=== PATIENT | female | born 1950 | race Caucasian/White ===

== ENCOUNTER 2017-11-02 08:55 | Day surgery (SDC) | payer MEDICARE ==
[2017-10-31 09:18] VITALS: BP 103/66
[~2017-11-02] VITALS: Ht 167.6 cm; Wt 95.2 kg
[~2017-11-02 08:55] MED LIST: APIX5TAB PO; ATOR20TA9 PO; BUPIVACAINE/PF 0.5% ONE; METO-99 PO; METO50TA82 PO
[2017-11-02] MEDS ORDERED: LACTATED RINGERS 1,000 ML IV SCH (09:20)
[2017-11-02 09:23] VITALS: BP 103/66
[2017-11-02] MEDS ORDERED: LIDOCAINE-MPF 1%, 2ML ONE (09:30)
[2017-11-02] MEDS ORDERED: LIDOCAINE-MPF 1%, 2ML INFIL ONE (09:30)
[2017-11-02] MEDS ORDERED: LIDOCAINE-MPF 2% ,5ML ONE (10:50)
[2017-11-02] MEDS ORDERED: PROPOFOL 10 MG/ML, 20ML ONE (10:50)
[2017-11-02] MEDS ORDERED: CEFAZOLIN 1,000 MG ONE ×2 (11:02)
[2017-11-02] MEDS ORDERED: DEXAMETHASONE 4 MG/ML, 1ML ONE (11:07)
[2017-11-02] MEDS ORDERED: ONDANSETRON 2MG/ML, 2ML ONE (11:08)
[2017-11-02] MEDS ORDERED: FENTANYL PF 100 MCG/2ML ONE (11:08)
[2017-11-02] MEDS ORDERED: BUPIVACAINE/PF-EPI 0.5% 1:200K IM ONE (11:12)
[2017-11-02] MEDS ORDERED: HYDROcodone/APAP 7.5-325MG/15ML UDC PO PRN (11:30)
[2017-11-02] MEDS ORDERED: ONDANSETRON 2MG/ML, 2ML IVPush PRN (11:30)
[2017-11-02] MEDS ORDERED: OXYcodone 5 MG/5 ML ORAL.SOL UDC PO PRN (11:30)
[2017-11-02] MEDS ORDERED: morphine SULFATE 10 MG/ML, 1ML IV PRN (11:30)
[2017-11-02] MEDS ORDERED: MEPERIDINE/PF 25MG/0.5ML IVPush PRN (11:30)
[2017-11-02] MEDS ORDERED: FENTANYL PF 100 MCG/2ML IV PRN (11:30)
[2017-11-02] MEDS ORDERED: OXYcodone 5 MG/5 ML ORAL.SOL UDC ONE (11:46)
== END 2017-11-02 13:15 | disposition home or self-care (01) ==
LOC: OUT 08:55
PROVIDERS: ATTEND Surgery
DX: N60.01 Solitary cyst of right breast (principal); E78.00 Pure hypercholesterolemia, unspecified; I10 Essential (primary) hypertension; F17.210 Nicotine dependence, cigarettes, uncomplicated; Z90.710 Acquired absence of both cervix and uterus; Z98.890 Other specified postprocedural states; Z88.8 Allergy status to other drugs, medicaments and biological substances
CPT/HCPCS: 19120; 87070; 87075; 87205; 88304; 93005; J0690; J1100; J2405; J2704; J3010; J3490; J7120; 88305